=== PATIENT | male | born 1990 ===

== ENCOUNTER 2023-02-19 00:44 | Emergency (ER) | payer MEDICAID, SELFPAY ==
[2023-02-19 00:52] VITALS: BP 144/86; PULSE 71; RESP 18; TEMP 36.9; O2SAT 99; BMI 29.8
[2023-02-19] MEDS: Fluorescein Sodium STRIP 1 STRIP EYE-BOTH (02:30)
--- NOTE | 2023-02-19 02:44 | ED.GENADULT ---
HPI - General Adult General Chief complaint: General Medical Stated complaint: ?Conjunctivitis Time Seen by Provider: 02/19/23 01:46 Source: patient Mode of arrival: ambulatory Limitations: no limitations History of Present Illness HPI narrative: 32-year-old male came in for evaluation of bilateral eye pain and discharge. Started about 2 days ago the left eye feels like foreign body in eye, left eye watering, and redness in the left eye now patient is sustaining symptoms on the right eye, declined any trauma or exposure to foreign body ache, patient dont not wear contact lens or eyeglasses. Related Data Previous Rx's Medication Instructions Recorded amoxicillin 500 mg-potassium 1 tab PO BID #14 tabs 02/19/23 clavulanate 125 mg tablet (Augmentin) erythromycin 5 mg/gram (0.5 %) eye 1 appl ophthalmic (eye) TID #50 02/19/23 ointment grams Allergies Allergy/AdvReac Type Severity Reaction Status Date / Time No Known Allergies Allergy Verified 02/19/23 00:55 Review of Systems Review of Systems: All other systems are reviewed and are negative Constitutional: Reports as per HPI and Reports no additional constitutional complaints Eyes: Reports as per HPI and Reports no additional eye complaints Reports system reviewed and no additional complaints, except as documented Cardiovascular: Reports as per HPI and Reports no additional cardiovascular complaints Respiratory: Reports as per HPI and Reports no additional respiratory complaints Gastrointestinal: Reports as per HPI and Reports no additional gastrointestinal complaints Genitourinary: Reports no additional female genitourinary complaints Musculoskeletal: Reports no additional musculoskeletal complaints Skin/Breast: Reports system reviewed and no additional complaints, except as docu Psychiatric: Reports no additional psychiatric complaints Endocrine: Reports no additional endocrine complaints Hematologic/Lymphatic: Reports no additional hematologic/lymphatic complaints Allergic/Immunologic: Reports no additional allergic/immunologic complaints Reports system reviewed and no additional complaints, except as documented and Reports Abnormal speech present [facility] Social History Social History Advance Directives: No Advance Directives Information Provided: Yes Physical Exam ED Vital Signs: Vital Signs - 24 hr 02/19/23 00:52 Temperature 98.5 F Pulse Rate 71 Respiratory Rate 18 Blood Pressure 144/86 H Pulse Oximetry 99 BMI result Body Mass Index 29.8 Vital signs have been reviewed as appeared to be correct. Blood pressure normal. Heart rate normal. Respiration rate normal. Temperature normal. Oxygen saturation normal. Appearance: Alert. Oriented X3. No acute distress. Head: Normal external exam. Normocephalic. Atraumatic. No Watkins signs noted. No raccoon eyes noted Eyes: PERRLA. EOMI, dry and red skin periorbitally, conjunctival injection, no corneal fluorescein uptake bilateral, IOP left is 17 right is 16, visual acuity 20/20 bilaterally, tenderness over frontal sinuses bilaterally and the maxillary sinuses bilaterally ENT: TM's Normal. Pharynx normal. Uvula midline. Moist mucous membranes. No trismus noted. No drooling noted. No muffled voice noted. Neck: Normal inspection. Neck supple. FROM. No adenopathy. Thyroid Normal. No meningeal signs. No neck mass noted. CVS: Normal heart rate and rhythm. Heart sound normal. No murmurs noted. Pulses normal throughout. Respiratory: No respiratory distress. Painless inspiration. Breath sounds normal. No wheezes/rales/rhonchi noted. Chest nontender. No accessory muscle usage noted or decreased air movement noted. Abdomen: Soft and nontender. Bowel sounds normal in all 4 quadrants. No distention noted. No organomegaly noted. No visible injury noted. Back: No CVA tenderness. Full range of motion noted. Skin: Skin warm and dry. Normal skin color. Normal skin turgor. No rashes/lesions/lacerations noted. Extremities: No lower extremity edema. Extremities exhibit normal range of motion. Extremities nontender. Neuro: Oriented X 3. Cranial nerve exam: II-XII are grossly intact No motor deficit. No sensory deficit. Reflexes normal. Course Course Course Narrative: Bilateral conjunctivitis and bilateral sinusitis start the patient on Augmentin and erythromycin. Medications Administered Discontinued Medications Generic Name Dose Route Start Last Admin Trade Name Freq PRN Reason Stop Dose Admin Fluorescein Sodium 1 strip 02/19/23 01:59 02/19/23 02:30 Fluorescein Sodium Strip EYE-BOTH 02/19/23 02:00 1 strip ONCE ONE Administration Medical Decision Making Differential Diagnosis Differential Diagnoses: The differential diagnosis associated with the presentation includes (Sinusitis, conjunctivitis, foreign body, glaucoma, corneal abrasion.) Admission/Observation Consideration of admission/observation: Escalation of care including admission/observation considered Discharge Plan Discharge Clinical Impression: Conjunctivitis, Sinusitis Patient Disposition: Home, Self-Care Instructions: Sinusitis (ED), Conjunctivitis (ED) Additional Instructions: You have bilateral high infection which is highly contagious, Hand washing frequently every day, use your separate sheet and out. Prescriptions: New amoxicillin-pot clavulanate [Augmentin] 500-125 mg tablet 1 tab PO BID Qty: 14 0RF erythromycin 5 mg/gram (0.5 %) ointment 1 appl ophthalmic (eye) TID Qty: 50 0RF Stand Alone Forms: Work/School Release
== END 2023-02-19 03:11 | disposition home or self-care (01) ==
PROVIDERS: Emergency Provider Emergency Medicine
DX: H10.9 Unspecified conjunctivitis (principal); H57.13 Ocular pain, bilateral; J32.9 Chronic sinusitis, unspecified
CPT/HCPCS: 99282; 99283

== ENCOUNTER 2023-02-28 18:50 | Emergency (ER) | payer MEDICAID, SELFPAY ==
[2023-02-28 18:56] VITALS: BP 137/79; PULSE 102; RESP 18; TEMP 37.1; O2SAT 98; BMI 29.0
--- NOTE | 2023-02-28 19:15 | ED_ITS ---
HPI - General Adult General Chief complaint: Allergic Reaction Stated complaint: SOB, facial/throat swelling. allergic react? Time Seen by Provider: 02/28/23 22:18 Source: patient Mode of arrival: ambulatory Limitations: no limitations History of Present Illness HPI narrative: facial rash after using montes dye much worse - hx of same in past itchy and painful with crusti complaint: facial rash Onset (ago): day(s) (2) Location: face Radiation: non-radiation Severity: moderate Quality: burning and aching Pain Consistency: constant Relieving factors: none Exacerbating factors: other (palpation) Associated symptoms: rash Treatments prior to arrival: none Related Data Previous Rx's Medication Instructions Recorded amoxicillin 500 mg-potassium 1 tab PO BID #14 tabs 02/19/23 clavulanate 125 mg tablet (Augmentin) erythromycin 5 mg/gram (0.5 %) eye 1 appl ophthalmic (eye) TID #50 02/19/23 ointment grams cephalexin 500 mg capsule 500 mg PO QID #28 caps 02/28/23 mupirocin 2 % topical ointment 1 appl topical BID 7 days #15 grams 02/28/23 prednisone 20 mg tablet 40 mg PO DAILY 4 days #8 tabs 02/28/23 Allergies Allergy/AdvReac Type Severity Reaction Status Date / Time No Known Allergies Allergy Verified 02/19/23 00:55 Review of Systems Review of Systems: Constitutional : No Fever, No Chills ENT/Mouth : No sore throat, No Rhinorrhea Eyes: No Eye Pain, No Swelling, No Redness Cardiovascular : No Chest Pain, No SOB Respiratory : No Cough, No Sputum Gastrointestinal : No Nausea, No Vomiting, No Diarrhea, No abdominal Pain Genitourinary : No Dysuria, No Hematuria Musculoskeletal : No joint pain, No Myalgias, No Joint Swelling Skin : No Skin Lesions, positive skin rash Neuro : No Weakness, No Numbness, No Headache Psych : No Anxiety, No Depression Heme/Lymph: No Bruising, No Bleeding,No Lymphadenopathy Endocrine : No Polyuria, No Polydipsia All other systems reviewed and are negative [facility] Past Medical History Attestation statement: The following information was validated with the patient. Medical History (Updated 02/28/23 @ 22:53 by Macey Blas DO) No pertinent past medical history Social History Social History Advance Directives: No Advance Directives Information Provided: No Physical Exam ED Vital Signs: Vital Signs - 24 hr 02/28/23 18:56 02/28/23 22:37 Temperature 98.8 F 97.7 F Pulse Rate 102 H 66 Respiratory Rate 18 16 Blood Pressure 137/79 127/72 Pulse Oximetry 98 98 Oxygen Delivery Method Room Air Room Air BMI result Body Mass Index 29.0 Appearance: Alert. Oriented X3. No acute distress. Eyes: Pupils equal, round and reactive to light. ENT: Pharynx normal. along montes line red raised yellow crusted lesions with some weeping no abscess felt on montes Neck: Normal inspection. Neck supple. CVS: Normal heart rate and rhythm. Pulses normal. Respiratory: No respiratory distress. Breath sounds normal. Abdomen: Soft and nontender. Skin: Skin warm and dry. Normal skin color. . Extremities: No lower extremity edema. Neuro: Oriented X 3. No motor deficit. No sensory deficit. Course Course Course Narrative: This is an RME: Additional HPI, ROS, PE not included below will be deferred to primary provider. This is a [id number] presenting to the ER with complaints of facial swelling and SOB. Reports that he was using [employer] , on montes 2-3 days ago. Now having swelling and redness on skin. No respiratory distress. VSS. Plan: Further ER evaluation needed. Medical Decision Making Medical Decision Making MDM Narrative: 33 yo male with dermatitis of face and yellow crusting but no abscess s/p using facial montes dye hx of same in past but not to this degree - he definitely has an allergy component but my concern is there is erythema and yellow crusting he has no hx of MRSA I am going to start him on steroids, cephalexin and mupirocin and given reasons to return. Differential Diagnosis Differential Diagnoses: The differential diagnosis associated with the presentation includes dermatitis, celllulitis Admission/Observation Consideration of admission/observation: Escalation of care including admission/observation considered no concern for deeper space infection can be managed as outpatient External Record Review External record reviewed: Inpatient record Prescription Management I considered prescription management with: Antibiotic and Other (steroids, cephalexin, mupirocin) Discharge Plan Discharge Clinical Impression: Dermatitis Allergic reaction Qualifiers: Encounter type: initial encounter Qualified Code(s): T78.40XA - Allergy, unspecified, initial encounter Patient Disposition: Home, Self-Care Instructions: General Allergic Reaction (ED), Dermatitis (ED) Additional Instructions: take a probiotic while on antibiotic. return for worsening pain, swelling, fevers, or any other concerns. more than 8 loose stools a day while on antibiotics is not normal please seek care Prescriptions: New cephalexin 500 mg capsule 500 mg PO QID Qty: 28 0RF mupirocin 2 % ointment 1 appl topical BID 7 Days Qty: 15 0RF prednisone 20 mg tablet 40 mg PO DAILY 4 Days Qty: 8 0RF No Action amoxicillin-pot clavulanate [Augmentin] 500-125 mg tablet 1 tab PO BID Qty: 14 0RF erythromycin 5 mg/gram (0.5 %) ointment 1 appl ophthalmic (eye) TID Qty: 50 0RF Stand Alone Forms: Work/School Release
[2023-02-28 22:37] VITALS: BP 127/72; PULSE 66; RESP 16; TEMP 36.5; O2SAT 98
[2023-02-28] MEDS: predniSONE 20 MG TABLET 40 MG PO (22:41)
[2023-02-28] MEDS: cephALEXin 500 MG CAPSULE PO (22:41)
--- NOTE | 2023-02-28 23:01 | PC.NURSE ---
pt medicated according to aug. pt calm and cooperative.
--- NOTE | 2023-02-28 23:04 | PC.NURSE ---
pt ambulatory at discharge. vss. pt denies sob/ difficulty breathing. pt provided with discharge packet and work note. pt verbalized understanding of discharge plan
== END 2023-02-28 23:05 | disposition home or self-care (01) ==
PROVIDERS: Emergency Provider Emergency Medicine
DX: L30.8 Other specified dermatitis (principal); R06.02 Shortness of breath
CPT/HCPCS: 99283; 99284